=== PATIENT | male | born 1955 | race Caucasian/White ===

== ENCOUNTER → 2017-09-08 | Outpatient (CLI) | payer OTHER ==
--- NOTE | 2017-09-09 08:35 | MRI ---
HISTORY: Disc disorder with radiculopathy, chronic low back pain Study: MRI lumbar spine without contrast Comparison: 09/20/2012 Technique: Multiplanar multi-sequence MRI of the lumbar spine was obtained. Sagittal T1, sagittal T2 , and stir weighted images, axial T1, and axial T2 images were obtained. Findings: There is chronic dextrocurvature of lumbar spine. There is grade 1 anterolisthesis of L4 on L5. There is advanced multilevel spondylosis and disc space narrowing with degenerative endplate marrow signal changes again noted. No evidence of acute fracture or subluxation. The surrounding paraspinal soft t issues are within normal limits. T12 -- L1: No significant stenosis. L1 -- L2: Severe disc height loss with endplate spurring resulting in moderate right foraminal stenos is. [id number] facet degenerative changes are present. L2 -- L3: Moderate facet arthropathy, severe disc height loss and endplate spurring resulting in mode rate to severe foraminal stenosis on the right and moderate stenosis on the left. L3 -- L4: Facet hypertrophic changes and a broad-based disc bulge with severe spondylitic changes res ulting in moderate to severe left foraminal stenosis. L4 -- L5: Advanced facet degenerative changes are present resulting in grade 1 anterolisthesis. There is advanced disc degeneration and endplate erosion with moderate severe bilateral foraminal stenosis . L5 -- S1: Advanced facet and disc degeneration is present resulting in mild bilateral foraminal steno sis. IMPRESSION: 1. Advanced multilevel facet and discogenic degenerative changes resulting in varying degrees of fora urszula stenosis, most severe at L2-L3, L3-L4 and L4-5 as detailed above. Reported By:
== END ==
LOC: RAD 08:19
PROVIDERS: ATTEND Internal Medicine
DX: M51.16 Intervertebral disc disorders with radiculopathy, lumbar region (principal)
CPT/HCPCS: 72148